=== PATIENT | male | born 1940 | race Caucasian/White ===

== ENCOUNTER 2017-07-01 11:47 | Emergency (ER) | payer MEDICARE, OTHER ==
[2017-07-01] MEDS ORDERED: KETOROLAC TROMETHAMINE 60 MG/2 ML VIAL IM ONE ×2 (13:22→13:25)
[2017-07-01] MEDS ORDERED: ORPHENADRINE CITRATE 30 MG/ML VIAL IM ONE (13:23)
--- NOTE | 2017-07-01 13:23 | ERNOTE ---
Back Pain ER HPI Date of Service: 07/01/17 Presenting Symptoms: injury/pain to back Time Seen by Provider: 07/01/17 13:10 Source: patient, family, RN notes reviewed Exam Limitations: no limitations Immunizations: IMMUNIZATION HX Immunizations Up to Date Yes History of Influenza Vaccine No Hx Pneumococcal Vaccination No Allergies/Adverse Reactions: Allergies No Known Allergies Allergy (Unverified 07/01/17 11:55) Home Medications: HOME MEDICATIONS Cyclobenzaprine HCl [Flexeril] 10 mg PO TID PRN #20 tab 07/01/17 [Last Taken Unknown] HYDROcodone/ACETAMINOPHEN [[place] 5-325] 1 - 2 tab PO Q6H PRN #20 tab 07/01/17 [ Last Taken Unknown] Narrative: 76 y/o male with right lower back pain radiating down his right leg. He has been having problems with this for about a month, but his gotten much worse in the past 2 or 3 days. He has been taking ibuprofen without improvement. He denies any injury. Location of pain: Reports: lower back, radiating to rt thigh/leg Activities at Onset: Reports: none Recent Injury?: Reports: no Modifying Factors - (Improves): Reports: upright position Modifying Factors - (Worsens): Reports: other - sitting Associated Symptoms: Denies: fever/chills, sweating, constipation/incontinence, nausea/vomiting, problems urinating, difficulty walking, lightheadedness, numbess/weakness in legs Prior Treament: Denies: recently seen Review of Systems - Review of Systems Constitutional: Absent: recent illness, fever, chills EYE: Present: no symptoms reported ENT: Present: no symptoms reported Respiratory: Absent: shortness of breath, cough Cardiology: Absent: chest pain, edema Gastrointestinal/Abdominal: Absent: nausea, abdominal pain Genitourinary: Absent: dysuria, hematuria Musculoskeletal: Present: back pain. Absent: neck pain Skin: Absent: rash, lesions, lumps, change in color Neurological: Present: tingling. Absent: headache, dizziness/light-headedness, weakness, numbness Endocrine: Present: no symptoms reported Hematologic/Lymphatic: Present: no symptoms reported Psych: Present: no symptoms reported - Patient's Past Medical History Patient History - Medical: No pertinent hx Patient History - Cardiac/Respiratory: No pertinent hx Patient History - Cancer: No Hx of Cancer Patient History - Surgical Procedures: Hernia Repair Patient History - Other: None - Social History Living Situations: home Psych History: No pertinent hx Smoking Status: Light tobacco smoker Alcohol Use: none Drug Use: none - Immunizations Immunizations Up to Date: Yes Hx Pneumococcal Vaccination: No History of Influenza Vaccine: No Physical Exam - Physical Exam General Appearance: Present: wd/wn, alert, mild distress Head Exam: Present: normal inspection Neck: Present: normal inspection, nontender, supple Respiratory: Present: no respiratory distress, normal breath sounds, no accessory muscle use, lungs clear Cardiovascular/Chest: Present: regular rate, rhythm, no murmur Back Exam: Present: no CVA tenderness, no vertebral tenderness, decreased range of motion, other - Paraspinal lumbar muscle tenderness with palpation on right side Extremity Exam: Present: normal inspection, non-tender, normal range of motion, no edema Neurological Exam: Present: alert, oriented, normal mood/affect, no motor/ sensory deficits, other - Normal strength against resistance in both legs, Dorsiflexes great toes Skin Exam: Present: normal color, warm/dry ED Progress - Vital Signs Patient's Vital Signs:: I have reviewed the patient's vital signs. Vital Signs: Vital Signs 07/01/17 07/01/17 11:52 11:56 Temperature 36.4 C L Pulse Rate 85 86 Respiratory 16 16 Rate Blood Pressure 130/63 O2 Sat by Pulse 97 97 Oximetry - Progress/Reassessment Chief Complaint: Back Pain Progress:: Improved Departure Clinical Impression: Low back pain with right-sided sciatica Qualifiers: Chronicity: acute Back pain laterality: right Qualified Code(s): M54.41 - Lumbago with sciatica, right side - Departure Disposition: Home Follow Up Needed Condition: Stable Instructions: Sciatica, [id number] Additional Instructions: Can continue ibuprofen Schedule follow up appointment with your PCP Pain medication can cause drowsiness and constipation - you may need to take a laxative Referrals: Lena Storey FNP [Primary Care Provider] - Prescriptions: Cyclobenzaprine HCl [Flexeril] 10 mg PO TID PRN #20 tab PRN Reason: MUSCLE SPASMS HYDROcodone/ACETAMINOPHEN [[place] 5-325] 1 - 2 tab PO Q6H PRN #20 tab PRN Reason: Pain
--- OUTSIDE RECORDS SUMMARY | 2017-07-01 13:23 | XMS REPORT | Clinical Summary ---
:1940 Author Organization [facility] [place] [address] Care Team Providers Name Role Phone Unavailable Primary Care Provider Unavailable Source Comments This disclosure is being made pursuant to the [employer] program and maynot contain all information available regarding this patient.[facility] Allergies No Known Allergies Current Medications Be aware that medications may not be up to date as of this document. Alwaysverify current medications with the patient. Not on file Active Problems Not on file Encounters Date Type Specialty Care Team Description 05/08/2017 Office Visit Otolaryngology Lela Saenz, MS Sensory hearing loss, bilateral (Primary Dx) from Last 3 Months Family History Medical History Relation Name Comments Hearing loss Mother Hypertension Mother Relation Name Status Comments Mother Social History Tobacco Use Types Packs/Day Years Used Date Current Every Day Smoker Smokeless Tobacco: Never Used Tobacco Cessation:Ready to Quit: No; Counseling Given: No Alcohol Use Drinks/Week oz/Week Comments No Sex Assigned at Date Recorded Not on file Last Filed Vital Signs Vital Sign Reading Time Taken Blood Pressure - - Pulse - - Temperature - - Respiratory Rate - - Oxygen Saturation - - Inhaled Oxygen Concentration - - Weight 88 kg (194 lb) 03/03/2015 10:07 AM CDT Height 179.1 cm (5' 10.5") 03/03/2015 10:07 AM CDT Body Mass Index 27.44 03/03/2015 10:07 AM CDT Plan of Treatment Date Type Specialty Care Team Description 08/07/2017 Appointment Otolaryngology Lela Saenz, MS [address] [place] [address] [phone] Health Maintenance Due Date Last Done Comments Tetanus/Pertussis (1 - Tdap) 1959 Well Adult Visit 1990 Zoster Vaccine 60+ 2000 Pneumococcal Low/Medium Risk 65+ (1 of 2 - PCV13) 2005 INFLUENZA IMMUNIZATION (#1) 2017 Results Not on filefrom Last 3 Months Insurance Payer Benefit Plan / Subscriber ID Type Phone Address Group MEDICARE MEDICARE A AND B [id number] [phone] [address] [place] [address] [facility] PPO [id number] [phone] [place], [place] [address]
--- OUTSIDE RECORDS SUMMARY | 2017-07-01 13:23 | XMS REPORT | Encounter Summary ---
:1940 Author Organization [employer] [place] [address] Care Team Providers Name Role Phone Unavailable Primary Care Provider Unavailable Encounter Details Date Type Department Care Team Description 05/08/2017 Office Visit [facility] Lela Saenz, Sensory hearing loss, ENT [place] bilateral (Primary [address] [place] [address]) [place] [address] [place] [address] Social History Tobacco Use Types Packs/Day Years Used Date Current Every Day Smoker Smokeless Tobacco: Never Used Alcohol Use Drinks/Week oz/Week Comments No Sex Assigned at Date Recorded Not on file as of this encounter Progress Notes Lela Saenz, MS - 05/08/2017 10:52 AM CDTHearing Aid Check Name: Jesus Maciel Date of : 1940 CSN: [id number] Jesus Maciel was seen for a hearing aid check. His wax guards and 8mm open domes were changed. He was given 2 packages of domes and 1 package of wax guards. His overall gain was increased 3dBHL. He thought it sounded better. He will follow up in3 months or sooner if problems arise. Lela Saenz, May 08, 2017 10:[address] [facility] ENT [address] [place] [address] Dept: [phone] Dept in this encounter Plan of Treatment Date Type Specialty Care Team Description 08/07/2017 Appointment Otolaryngology Lela Saenz, MS [address] [place] [address] as of this encounter Visit Diagnoses Diagnosis Sensory hearing loss, bilateral - Primary in this encounter
--- OUTSIDE RECORDS SUMMARY | 2017-07-01 13:24 | XMS REPORT | Encounter Summary ---
:1940 Author Organization [employer] [place] [address] Care Team Providers Name Role Phone Unavailable Primary Care Provider Unavailable Encounter Details Date Type Department Care Team Description 02/06/2017 Office Visit [facility] Lela Saenz, Sensory hearing loss, ENT [place] bilateral (Primary [address] [place] [address] [place] [address] Social History Tobacco Use Types Packs/Day Years Used Date Current Every Day Smoker Smokeless Tobacco: Never Used Alcohol Use Drinks/Week oz/Week Comments No Sex Assigned at Date Recorded Not on file as of this encounter Progress Notes Lela Saenz, MS - 02/06/2017 3:50 PM CSTHearing Aid Check Name: Jesus Maciel Date of : 1940 CSN: [id number] Jesus Maciel was seen for hearing aid check. He was not hearing well and he was getting some echo sound with his voice. I changed the wax guards and just cleaned the domes, he had put them on new last night. I rechecked his hearing and there was aslight decrease. He has a moderate to severe sensorineural hearing loss in both ears. Speech discrimination is 76% in both ears. The aids were readjusted with the new audiogram. The overall gain was increased 4dBHL and the overall speech gain wasincreased 4dBHL. He will try the changes and let me know if he has any problems or needs any moreadjustments. His warranty on the aids goes until 05/11/18. He will follow up in 3 months or sooner if needed. Lela Saenz MS February 06, 2017 3:50 PM CLN [facility] ENT [address] [facility] [address] Dept: [phone] Dept in this encounter Plan of Treatment Date Type Specialty Care Team Description 08/07/2017 Appointment Otolaryngology Lela Saenz, MS [address] [place] [address] [phone] as of this encounter Visit Diagnoses Diagnosis Sensory hearing loss, bilateral - Primary in this encounter
--- OUTSIDE RECORDS SUMMARY | 2017-07-01 13:24 | XMS REPORT | Encounter Summary ---
:1940 Author Organization [employer] [place] [address] Care Team Providers Name Role Phone Unavailable Primary Care Provider Unavailable Encounter Details Date Type Department Care Team Description 12/31/2016 Office Visit [facility] Lela Saenz, Sensory hearing loss, ENT [place] bilateral (Primary [address] [facility]) [place] [address] [place] [address] Social History Tobacco Use Types Packs/Day Years Used Date Current Every Day Smoker Smokeless Tobacco: Never Used Alcohol Use Drinks/Week oz/Week Comments No Sex Assigned at Date Recorded Not on file as of this encounter Progress Notes Lela Saenz, MS - 12/31/2016 7:53 PM CSTHearing Aid Check Name: Jesus Maciel Date of : 1940 CSN: [id number] Jesus Maciel picked up 5 packages of size 312 batteries (power one) for $20. Lela Saenz, December 31, 2016 7:53 PM CLN [facility] ENT [address] [facility] [address] Dept: [phone] Dept in this encounter Plan of Treatment Date Type Specialty Care Team Description 08/07/2017 Appointment Otolaryngology Lela Saenz, MS [address] [place] [address] as of this encounter Visit Diagnoses Diagnosis Sensory hearing loss, bilateral - Primary in this encounter
--- OUTSIDE RECORDS SUMMARY | 2017-07-01 13:24 | XMS REPORT | Encounter Summary ---
:1940 Author Organization [employer] [place] [address] Care Team Providers Name Role Phone Unavailable Primary Care Provider Unavailable Encounter Details Date Type Department Care Team Description 02/11/2017 Orders Only [facility] Provider, Not In Centralized Scanning System Social History Tobacco Use Types Packs/Day Years Used Date Current Every Day Smoker Smokeless Tobacco: Never Used Alcohol Use Drinks/Week oz/Week Comments No Sex Assigned at Date Recorded Not on file as of this encounter Plan of Treatment Date Type Specialty Care Team Description 08/07/2017 Appointment Otolaryngology Lela Saenz, MS [address] [place] [address] [phone] as of this encounter Visit Diagnoses Not on filein this encounter
[2017-07-01] MEDS ORDERED: ORPHENADRINE CITRATE 30 MG/ML VIAL ONE (13:25)
[2017-07-01 13:35] VITALS: BP 104/57
== END 2017-07-01 13:59 | disposition home or self-care (01) ==
LOC: ER 11:47
DX: M54.41 Lumbago with sciatica, right side (principal); F17.200 Nicotine dependence, unspecified, uncomplicated